=== PATIENT | female | born 1950 | race Caucasian/White ===

== ENCOUNTER → 2016-09-24 | Outpatient (CLI) | payer OTHER ==
[~2016-09-24] MED LIST: ASPI81TA28 PO; CALC500C70 PO; LSN/10125 PO; MULT-506 PO; SIMV10TA2 PO
[2016-09-24 13:02] LABS: ALT/SGPT 20 U/L (12-78); AST/SGOT 19 U/L (15-37); BLOOD UREA NITROGEN 12 mg/dl (7-18); BUN/CREATININE RATIO 18.6 (10-20); CALCIUM 9.4 mg/dl (8.5-10.1); CARBON DIOXIDE 29 mmol/L (21-32); CHLORIDE 104 mmol/L (98-107); CHOLESTEROL 212 mg/dl (0-200); CREATININE 0.64 mg/dl (0.60-1.20); GLUCOSE 93 mg/dl (70-99); POTASSIUM 3.9 mmol/L (3.5-5.1); SODIUM 138 mmol/L (136-145); TRIGLYCERIDES 121 mg/dl (0-150); VERY LOW DENSITY LIPOPROT CALC 24 mg/dl
[2016-09-24 13:05] LABS: CHOLESTEROL/HDL RATIO 3.7; HDL CHOLESTEROL 57 mg/dl; LDL CHOLESTEROL CALCULATED 131 mg/dl
== END | disposition home or self-care (01) ==
LOC: C.LABPVFM 07:28
PROVIDERS: ATTEND Family Medicine
DX: E78.5 Hyperlipidemia, unspecified (principal); I10 Essential (primary) hypertension

== ENCOUNTER → 2017-03-15 | Outpatient (CLI) | payer OTHER ==
--- NOTE | 2017-03-16 14:02 | MAMMOGRAPHY REPORT ---
BILATERAL DIGITAL SCREENING MAMMOGRAM TOMOSYNTHESIS WITH CAD: 03/15/2017 CLINICAL HISTORY: Routine screening. Patient has no complaints. TECHNIQUE: Breast tomosynthesis in addition to standard 2D mammography was performed. Current study was also evaluated with a Computer Aided Detection (CAD) system. COMPARISON: Comparison is made to exams dated: 05/05/2015 mammogram, 04/30/2014 mammogram, 04/25/2013 m ammogram, 03/29/2011 mammogram, 03/03/2010 mammogram, and 02/26/2009 mammogram - [facility] enter. BREAST COMPOSITION: There are scattered areas of fibroglandular density in both breasts. FINDINGS: The parenchymal pattern is unchanged. No developing mass, architectural distortion or clus ter of suspicious microcalcifications is seen in either breast. IMPRESSION: ACR BI-RADS CATEGORY 2: BENIGN There is no mammographic evidence of malignancy. A 1 year screening mammogram is recommended. The pa tient will receive written notification of the results. Approximately 10% of breast cancers are not detected with mammography. A negative mammographic report should not delay biopsy if a clinically suggestive mass is present. Rupa Dickerson M.D. ay/:03/15/2017 16:59:59 Organizational Development Consultant: Lain SPIVEY(Karen)(Titus)(BD), [facility] letter sent: Normal 1/2 BI-RADS Code: ACR BI-RADS Category 2: Benign
== END | disposition home or self-care (01) ==
LOC: C.MAMM 14:45
PROVIDERS: ATTEND Nurse Practitioner
DX: Z12.31 Encounter for screening mammogram for malignant neoplasm of breast (principal)

== ENCOUNTER → 2017-09-28 | Outpatient (CLI) | payer OTHER | END | disposition home or self-care (01) | LOC: C.LABPVFM 07:28 | PROVIDERS: ATTEND Family Medicine | DX: Z11.59 Encounter for screening for other viral diseases (principal) ==

== ENCOUNTER → 2017-09-29 | Outpatient (CLI) | payer OTHER ==
[2017-09-29 12:45] LABS: HEMATOCRIT 42.7 % (37-47); HEMOGLOBIN 13.9 g/dL (12.0-16.0); MEAN CELL VOLUME 92.8 fL (80-100); MEAN CORPUSCULAR HEMOGLOBIN 30.2 pg (25-34); MEAN CORPUSCULAR HGB CONC 32.6 g/dl (32-36); MEAN PLATELET VOLUME 9.8 fL (7.4-10.4); PLATELET COUNT 267 K/uL (130-400); RED CELL DISTRIBUTION WIDTH CV 13.4 % (11.5-14.5); WHITE BLOOD COUNT 8.38 K/uL (4.8-10.8)
[2017-09-29 15:54] LABS: ALBUMIN 3.7 gm/dl (3.4-5.0); ALKALINE PHOSPHATASE 70 U/L (45-117); ALT/SGPT 24 U/L (12-78); AST/SGOT 19 U/L (15-37); BLOOD UREA NITROGEN 14 mg/dl (7-18); CALCIUM 9.3 mg/dl (8.5-10.1); CARBON DIOXIDE 27 mmol/L (21-32); CHOLESTEROL 147 mg/dl (0-200); CREATININE 0.67 mg/dl (0.60-1.20); GLUCOSE 87 mg/dl (70-99); LDL CHOLESTEROL CALCULATED 43 mg/dl; POTASSIUM 3.8 mmol/L (3.5-5.1); SODIUM 138 mmol/L (136-145); TOTAL PROTEIN 7.7 gm/dl (6.4-8.2)
== END | disposition home or self-care (01) ==
LOC: C.LABPVFM 10:10
PROVIDERS: ATTEND Family Medicine
DX: E78.5 Hyperlipidemia, unspecified (principal); M85.80 Other specified disorders of bone density and structure, unspecified site

== ENCOUNTER 2022-01-13 07:04 | Observation (INO) ==
[2022-01-13] MEDS ORDERED: FAMOTIDINE 20MG IV PUSH 20 MG/5 ML SYR IV STA (07:18)
[2022-01-13] MEDS ORDERED: methylPREDNISolone 125 MG/2 ML VIAL IV STA (07:18)
[2022-01-13] MEDS ORDERED: diphenhydrAMINE 50 MG/ML VIAL IV STA (07:18)
--- NOTE | 2022-01-13 07:25 | Emergency Department Note ---
Impression & Plan Angioedema, Facial swelling ED Provider Note NAME: NAHUM MENDOZA AGE: 71 SEX: F : 1950 ARRIVES VIA: Walk-In INFORMANT: Patient ED PROVIDER(S): Arron Newton DO CHIEF COMPLAINT: swelling in lips HPI: Patient is a 71-year-old female who presents to the ER for swelling of the left face/lips. She notes this started around 3 AM. Denies any headache or change in vision. She notes no swelling of the tongue and back of the throat. No trouble breathing or swallowing. No belly pain, nausea, vomiting, diarrhea. Admits to a rash on the legs which started around 3 AM. It is itching. Denies any chest pain or shortness of breath. No dysuria, urgency, or frequency. No other exacerbating or remitting factors. ROS: See above HPI for pertinent positives & negatives. A total of 10 systems reviewed and were otherwise negative. PAST MEDICAL HISTORY:See Below PAST SURGICAL HISTORY:See Below FAMILY HISTORY:See Below SOCIAL HISTORY:See Below HOME MEDICATIONS:See Below ALLERGIES:See Below VITALS:See Below PHYSICAL EXAMINATION: GENERAL: Sitting up in bed, alert, well appearing, well nourished, no distress, non-toxic EYE EXAM: normal conjunctiva. PERRL and EOM's grossly intact. OROPHARYNX: no exudate, no erythema, swelling of the bilateral cheeks as well as watery edema of both upper and lower lips NECK: supple, no nuchal rigidity, no adenopathy, non-tender LUNGS: Clear to auscultation. Normal chest wall mechanics HEART: no murmurs, S1 normal and S2 normal ABDOMEN: abdomen soft, non-tender, normo-active bowel sounds, no masses, no rebound or guarding. UPPER EXTREMITIES: upper extremities are grossly normal. LOWER EXTREMITIES: No pitting edema. NEURO EXAM: Normal sensorium, cranial nerves II-XII grossly intact, normal speech, no gross weakness of arms, no gross weakness of legs. MEDICAL DECISION MAKING: Patient is a 71-year-old female who presents the ER for swelling in the lips. She does take lisinopril. She does have a small rash on the legs and in the back. IV was established blood work was obtained. Labs show leukocytosis of 11,000. No significant anemia. BMP with LFTs bilirubin was unremarkable. COVID is negative. On exam patient is watery edema of the upper and lower lips. While sitting here she noticed some increased swelling of the cheeks. With the rash we had already giving her Benadryl, famotidine and steroids to the IV and we gave her IM epinephrine. There is no change. Did have the patient evaluated by our hospitalist staff Conti as well as Dr. Randall Portillo for admission. I did consult Alex Christine from anesthesia who evaluate the patient at bedside. No intubation at this time as she is protecting her airway and talking. She will be admitted for further work-up. She was updated. Triage Nursing notes reviewed. Limited review of prior medical records performed Vital Signs: reviewed and remarkable for HTN Differential diagnosis: Allergic reaction, anaphylaxis, urticaria, Kaur-Medhat syndrome, toxic epidermal necrolysis, erythema multiforme, contact dermatitis, cellulitis, as well as other pathologies. ER treatment provided: See below Diagnostics interpreted by me: ECG: none Cardiac Monitoring: An order was placed for continuous cardiac monitoring. The monitor shows a rate of 90 with sinus rhythm. Laboratory studies: As stated above and show below. Imaging studies: See below Consultation(s): Discussed with Dr. Medhat Conti for admission to the hospital service Discussed with Dr. 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 Hyperlipidemia Hypertension Internal hemorrhoids Osteoarthritis Osteopenia Vertigo Surgical History History of bilateral carpal tunnel release History of bilateral tubal ligation done during 2nd History of open reduction and internal fixation (ORIF) procedure right ankle--hardware in place History of wisdom tooth extraction Hx of section x2 Hx of tonsillectomy Family History Mother Colon cancer Diabetes Lung cancer Hypertension Brother Colon cancer Lung cancer Father Diabetes Cardiac disorder Hypertension Sister Diabetes Hypertension Unknown Myocardial infarction Other No family history of adverse response to anesthesia Denies family history of Ovarian cancer Prostate cancer Breast cancer Social History Smoking Status: Never smoker Second Hand Exposure: No; Hx Alcohol Use: Yes Hx Substance Use: No Preferred Language: Persian Communication Ability: Effective Industrial Insulator Required: No Beliefs That Will Affect Care: None marital status: Current Living Situation: Spouse current occupational status: retired Feels Safe at Home: Yes Safety Concerns: Feels Safe At This Time caffeine: Yes Dental Care, Regularly: Yes Physical Activity Frequency: 3-4 Times per Week Seatbelt Use: always Sunscreen Use: Yes Assistive Devices: Glasses Allergies Allergies Allergy/AdvReac Type Severity Reaction Status Date / Time pepper (genus Capsicum) Allergy Severe lips/face Verified 12/25/21 08:14 swelling Sulfa (Sulfonamide Allergy Intermediate HIVES Verified 12/25/21 08:14 Antibiotics) Home Meds Home Medications Medication Instructions Recorded Confirmed aspirin 81 mg tablet 81 mg PO QAM 10/10/18 12/25/21 calcium carbonate 500 mg-vitamin 1 tab PO QPM 10/10/18 12/25/21 D3 5 mcg (200 unit) tablet [id number]-fhmclozn-[id number] tablet 1 tab PO QAM 10/10/18 12/25/21 acetaminophen 650 mg 1,300 mg PO BID 03/12/21 12/25/21 tablet,extended release Previous Rx's Medication Instructions Recorded meclizine 25 mg tablet 25 mg PO TID PRN dizziness #30 tabs 01/09/19 simvastatin 10 mg tablet 10 mg PO QPM #90 tabs 10/02/21 alendronate 70 mg tablet 70 mg PO WK #12 tabs 11/10/21 lisinopril 10 1.5 tab PO QAM #135 tabs 11/24/21 mg-hydrochlorothiazide 12.5 mg tablet Results & Data (ED) Vital Signs Vital Signs - 24 hr 01/13/22 07:08 01/13/22 07:36 01/13/22 07:36 Temperature 37.2 C Temperature Source Oral Pulse Rate 93 H 78 Pulse Rate from SpO2 Sensor Pulse Rhythm Regular Respiratory Rate 18 22 Blood Pressure 172/101 H Blood Pressure [Left Arm] Blood Pressure Mean 124 Blood Pressure Mean [Left Arm] Blood Pressure Position [Left Arm] Pulse Oximetry 94 78 L 95 Oxygen Delivery Method Room Air Room Air Room Air Sepsis Recent Fever Within 48 Hours No Sepsis New/Unexplained Change in Mental Status No Sepsis Action Taken by Nursing No Action Required 01/13/22 07:37 01/13/22 07:37 01/13/22 07:45 Temperature Temperature Source Pulse Rate 88 76 Pulse Rate from SpO2 Sensor Pulse Rhythm Respiratory Rate 19 20 Blood Pressure Blood Pressure [Left Arm] 168/82 H Blood Pressure Mean Blood Pressure Mean [Left Arm] 110 Blood Pressure Position [Left Arm] Sitting Pulse Oximetry 95 94 Oxygen Delivery Method Room Air Room Air Sepsis Recent Fever Within 48 Hours Sepsis New/Unexplained Change in Mental Status Sepsis Action Taken by Nursing 01/13/22 08:00 01/13/22 08:15 01/13/22 08:30 Temperature Temperature Source Pulse Rate 87 67 Pulse Rate from SpO2 Sensor Pulse Rhythm Respiratory Rate 18 18 Blood Pressure 134/67 Blood Pressure [Left Arm] Blood Pressure Mean 89 Blood Pressure Mean [Left Arm] Blood Pressure Position [Left Arm] Pulse Oximetry 96 94 Oxygen Delivery Method Room Air Room Air Sepsis Recent Fever Within 48 Hours Sepsis New/Unexplained Change in Mental Status Sepsis Action Taken by Nursing 01/13/22 08:30 01/13/22 08:45 01/13/22 09:00 Temperature Temperature Source Pulse Rate 67 70 Pulse Rate from SpO2 Sensor 67 Pulse Rhythm Respiratory Rate 14 13 Blood Pressure 151/73 H Blood Pressure [Left Arm] Blood Pressure Mean 99 Blood Pressure Mean [Left Arm] Blood Pressure Position [Left Arm] Pulse Oximetry 93 94 Oxygen Delivery Method Room Air Room Air Sepsis Recent Fever Within 48 Hours Sepsis New/Unexplained Change in Mental Status Sepsis Action Taken by Nursing 01/13/22 09:00 Temperature Temperature Source Pulse Rate 83 Pulse Rate from SpO2 Sensor Pulse Rhythm Respiratory Rate 17 Blood Pressure Blood Pressure [Left Arm] Blood Pressure Mean Blood Pressure Mean [Left Arm] Blood Pressure Position [Left Arm] Pulse Oximetry 95 Oxygen Delivery Method Room Air Sepsis Recent Fever Within 48 Hours Sepsis New/Unexplained Change in Mental Status Sepsis Action Taken by Nursing Laboratory Data Result diagrams: 01/13/22 07:22 01/13/22 07:22 Lab Results 01/13/22 01/13/22 Range/Units 07: 07:22 WBC 11.47 H (4.8-10.8) K/ul RBC 4.65 (3.93-5.22) M/uL Hgb 14.5 (12.0-16.0) g/dl Hct 43.2 (34.1-44.9) % MCV 92.9 (80.0-100.0) fL MCH 31.2 (25.0-34.0) pg MCHC 33.6 (32.0-36.0) g/dL RDW Std Deviation 42.9 (36.4-46.3) fL RDW Coeff of Rolanda 12.5 (11.5-14.5) % Plt Count 251 (130-400) K/uL MPV 8.9 L (9.4-12.3) fL Immature Gran % (Auto) 0.5 % Neut % (Auto) 69.5 % Lymph % (Auto) 21.4 % [place] % (Auto) 6.4 % Eos % (Auto) 1.9 % Baso % (Auto) 0.3 % Neut # (Auto) 7.96 H (1.4-6.5) K/uL Lymph # (Auto) 2.46 (1.2-3.4) K/uL [place] # (Auto) 0.73 (0.24-0.82) K/uL Eos # (Auto) 0.22 (0-0.50) K/uL Baso # (Auto) 0.04 (0-0.2) K/uL Immature Gran # (Auto) 0.06 H (0.00-0.02) K/uL Sodium 138 (136-145) mmol/L Potassium 4.0 (3.5-5.1) mmol/L Chloride 103 (98-107) mmol/L Carbon Dioxide 28 (21-32) mmol/L Anion Gap 7 (3-11) BUN 11 (6-23) mg/dl Creatinine 0.58 L (0.6-1.2) mg/dl Est Cr Clr Drug Dosing 89.9 ml/min Est GFR ( Amer) 106.7 ml/min Est GFR (Non-Af Amer) 92.1 ml/min BUN/Creatinine Ratio 19.0 (10-20) Glucose 105 H (70-99(Fasting)) mg/dl Calcium 9.7 (8.5-10.1) mg/dl Total Bilirubin 0.9 (0.2-1.0) mg/dl AST 17 (13-39) U/L ALT 15 (7-52) U/L Alkaline Phosphatase 56 (34-104) U/L Total Protein 7.5 (6.0-8.3) gm/dl Albumin 4.2 (3.4-5.0) gm/dl Globulin 3.3 (2.5-4.0) gm/dl Albumin/Globulin Ratio 1.3 (0.9-2) Administered Medications Parenteral Electrolytes (Normosol-R) 1,000 mls @ 75 mls/hr IV .[id number] LENNOX Stop: 02/12/22 10:44 Last Admin: 01/13/22 12:00 Dose: 75 mls/hr Documented By: CB Discontinued Medications Diphenhydramine HCl (Diphenhydramine 50 Mg/Ml Vial) 50 mg IV NOW STA Stop: 01/13/22 07:19 Last Admin: 01/13/22 07:29 Dose: 50 mg Documented By: KARRIE Epinephrine HCl (Epinephrine Inj 1 Mg/Ml Amp) 0.3 mg IM NOW STA Stop: 01/13/22 08:47 Last Admin: 01/13/22 08:49 Dose: 0.3 mg Documented By: KARRIE Epinephrine HCl (Epinephrine Inj 1 Mg/Ml Amp) Confirm Administered Dose 1 mg .ROUTE .STK-MED ONE Stop: 01/13/22 08:48 Last Admin: 01/13/22 08:49 Dose: Not Given Documented By: KARRIE Famotidine (Pepcid 20mg Iv Push) 20 mg in 5 mls @ 2.5 mls/min IV NOW STA Stop: 01/13/22 07:19 Last Admin: 01/13/22 07:28 Dose: 2.5 mls/min Documented By: KARRIE Methylprednisolone (Methylprednisolone 125 Mg/2 Ml Vial) 125 mg IV NOW STA Stop: 01/13/22 07:19 Last Admin: 01/13/22 07:30 Dose: 125 mg Documented By: KARRIE Discharge Plan Visit Data Chief Complaint: Allergic Reaction Stated Complaint: FACIAL SWELLING - LIPS,CHEEKS ED Provider: Arron Newton Discharge Problem: Angioedema, Facial swelling Patient Disposition: Admitted As Inpatient Discharge Instructions Interventions: ED Discharge Assessment Last Done: 01/13/22 10:40
[2022-01-13 07:32] LABS: Basophils # (auto) 0.04 K/uL (0-0.2); Basophils % (auto) 0.3 %; Eosinophils # (auto) 0.22 K/uL (0-0.50); Eosinophils % (auto) 1.9 %; Hematocrit (blood only) 43.2 % (34.1-44.9); Hemoglobin 14.5 g/dl (12.0-16.0); Immature Granulocytes # (auto) 0.06 K/uL (0.00-0.02); Immature Granulocytes % (auto) 0.5 %; Lymphocytes # (auto) 2.46 K/uL (1.2-3.4); Lymphocytes % (auto) 21.4 %; Mean Corpuscular Hemoglobin 31.2 pg (25.0-34.0); Mean Corpuscular Hgb Conc 33.6 g/dL (32.0-36.0); Mean Corpuscular Volume 92.9 fL (80.0-100.0); Mean Platelet Volume 8.9 fL (9.4-12.3); Monocytes # (auto) 0.73 K/uL (0.24-0.82); Monocytes % (auto) 6.4 %; Neutrophils # (auto) 7.96 K/uL (1.4-6.5); Neutrophils % (auto) 69.5 %; Platelet Count 251 K/uL (130-400); RDW Coefficient of Variation 12.5 % (11.5-14.5); RDW Standard Deviation 42.9 fL (36.4-46.3); Red Blood Count 4.65 M/uL (3.93-5.22); White Blood Count 11.47 K/ul (4.8-10.8)
[2022-01-13 07:53] LABS: Albumin Globulin Ratio 1.3 (0.9-2); Albumin Level 4.2 gm/dl (3.4-5.0); Bilirubin,Total 0.9 mg/dl (0.2-1.0); Calcium 9.7 mg/dl (8.5-10.1); Creatinine Clr Calc Pharmacy 89.9 ml/min; Est GFR (African American) 106.7 ml/min; Est GFR (Non-African American) 92.1 ml/min; Globulin 3.3 gm/dl (2.5-4.0); Total Protein 7.5 gm/dl (6.0-8.3)
[2022-01-13] MEDS ORDERED: EPINEPHrine INJ 1 MG/ML AMP IM STA (08:46)
[2022-01-13] MEDS ORDERED: EPINEPHrine INJ 1 MG/ML AMP ONE (08:47)
[2022-01-13] MEDS ORDERED: ACETAMINOPHEN 325 MG TAB PO PRN (09:10)
[2022-01-13] MEDS ORDERED: ONDANSETRON INJ 2 MG/ML 2 ML VIAL IV PRN (09:10)
[2022-01-13] MEDS ORDERED: MECLIZINE HCL 25 MG TAB PO PRN (09:15)
[2022-01-13] MEDS ORDERED: diphenhydrAMINE 50 MG/ML VIAL IV PRN (09:16)
--- NOTE | 2022-01-13 09:26 | History & Physical Report ---
Date of Service January 13, 2022 Assessment & Plan (1) Angioedema: Plan: 71-year-old female presenting with moderate facial and lip swelling concerning for angioedema requiring close airway monitoring and ongoing anaphylactic medication administration over the next several hours. -Patient's exam consistent with acute angioedema. While the patient does have a history of similar symptoms relating to a pepper allergy, though symptoms typically occur fairly abruptly after the ingestion and this was certainly not the case. Patient has a longstanding history of lisinopril use. Currently, symptoms are suspicious of angio edema from likely lisinopril use. Will wi thhold lisinopril to this point. Interestingly, the patient has had some hives as well. She received aggressive doses of steroids, antihistamines, and one- time dose of epinephrine in the emergency department. She will be evaluated by anesthesia for airway management. Patient to be admitted to monitored telemetry floor. We will keep airway equipment outside the room in the immediate future in the event that the patient's symptoms were to decline. Otherwise, we will continue with scheduled Solu-Medrol and famotidine. Will have as needed Benadryl IV ordered. Epinephrine ordered as well for refractory symptoms. Continue other home medications for hyperlipidemia and pain. Otherwise, will likely need to address patient's hypertension with change in medication, however we will see how the patient's blood pressure trends throughout current stay. (2) Facial swelling: Plan: See above (3) Difficult airway for intubation: Plan: See above (4) Hypertension: Plan: Hold lisinopril at this time as this is likely culprit of patient's angioedema. (5) Hyperlipidemia: Plan: Continue simvastatin. (6) Dizziness: Plan: Continue meclizine as needed. History of Present Illness Chief Complaint: Swelling in Lips Primary Care Provider: Gemma Artis MD Patient is a pleasant 71-year-old female with a significant past medical history of hypertension, hyperlipidemia, osteoporosis, and dizziness who presented to the emergency department this morning for evaluation of lips and facial swelling. Patient states that other than having symptoms of an upper respiratory infection for the past week, she has been at her typical state of health. She reports that 1 week ago she developed a sore throat which progr essed to ongoing cough. She states that the sore throat has resolved, but she has had a persistent cough. She has been taking ctdr-wzj-bhsqwta NyQuil and DayQuil as needed. She reports that there is been no new medications otherwise. She woke at approximately 3 AM and noticed that she had a rash to her bilateral legs. She also noted swelling to her face and lips. She states that she has had similar swelling of the face and lips in the past with a reaction to peppers, but reports that other than a few bites of some pizza that did not appear to have peppers on it, she had no known exposures. She reports that her allergy to peppers typically declares itself within the first several minutes to hours after ingestion and this certainly was not the case. She denies any difficulty with breathing or swallowing. She does report a history of lisinopril use which she has been on for "many years". She denies any family history of angioedema. The patient reports no new detergents, colognes, perfumes, foods, etc. Other than some soreness and burning to the face and lips, she denies any complaints of headaches, dizziness, lightheadedness, shortness of breath, stridor, chest pain, difficulty breathing, difficulty swallowing, nausea, vomiting, or abdominal discomfort. Allergies Allergy/AdvReac Type Severity Reaction Status Date / Time pepper (genus Capsicum) Allergy Severe lips/face Verified 12/25/21 08:14 swelling Sulfa (Sulfonamide Allergy Intermediate HIVES Verified 12/25/21 08:14 Antibiotics) Home Medications Medication Instructions Recorded Confirmed Type aspirin 81 mg tablet 81 mg PO QAM 10/10/18 12/25/21 History calcium carbonate 500 mg-vitamin 1 tab PO QPM 10/10/18 12/25/21 History D3 5 mcg (200 unit) tablet drtikjovxalx-lacufjiy-jxtvmt tablet 1 tab PO QAM 10/10/18 12/25/21 History meclizine 25 mg tablet 25 mg PO TID PRN dizziness #30 tabs 01/09/19 12/25/21 Rx acetaminophen 650 mg 1,300 mg PO BID 03/12/21 12/25/21 History tablet,extended release simvastatin 10 mg tablet 10 mg PO QPM #90 tabs 10/02/21 12/25/21 Rx alendronate 70 mg tablet 70 mg PO WK #12 tabs 11/10/21 12/25/21 Rx lisinopril 10 1.5 tab PO QAM #135 tabs 11/24/21 12/25/21 Rx mg-hydrochlorothiazide 12.5 mg tablet Past Med/Surg History Medical History Diverticulosis of colon Hearing loss in left ear Hyperlipidemia Hypertension Internal hemorrhoids Osteoarthritis Osteopenia Vertigo Surgical History History of bilateral carpal tunnel release History of bilateral tubal ligation done during 2nd History of open reduction and internal fixation (ORIF) procedure right ankle--hardware in place History of wisdom tooth extraction Hx of section x2 Hx of tonsillectomy Family History Mother Colon cancer Diabetes Lung cancer Hypertension Brother Colon cancer Lung cancer Father Diabetes Cardiac disorder Hypertension Sister Diabetes Hypertension Unknown Myocardial infarction Other No family history of adverse response to anesthesia Denies family history of Ovarian cancer Prostate cancer Breast cancer Social History Smoking Status: Never smoker Second Hand Exposure: No; Hx Alcohol Use: Yes Hx Substance Use: No Preferred Language: Turkmen Communication Ability: Effective Math Teacher Required: No Beliefs That Will Affect Care: None marital status: Current Living Situation: Spouse current occupational status: retired Feels Safe at Home: Yes Safety Concerns: Feels Safe At This Time caffeine: Yes Dental Care, Regularly: Yes Physical Activity Frequency: 3-4 Times per Week Seatbelt Use: always Sunscreen Use: Yes Assistive Devices: Glasses Review of Systems Review of Systems: A complete 10 point review of systems was reviewed with the patient with pertinent positives and negatives as per history of present illness. All else were negative. Physical Exam Physical Exam: VITAL SIGNS - Vital signs and nursing notes were reviewed. GENERAL - 71-year-old female appearing her stated age. Communicates well with provider and answers questions appropriately. SKIN - Gross examination of the entire body surface demonstrates multiple small urticaria to the legs and lower back. Lesions are blanchable. There are no noticeable excoriations overlying the lesions. Patient has no noticeable active pruritis. HEAD - Normocephalic, Atraumatic. EYES - PERRL with EOMI bilaterally. Without periorbital edema. Without subconjunctival hemorrhage. Palpebral conjunctiva pink and moist with no injection. EARS - No deformities of external structures noted on gross examination bilaterally. No hemotympanum present. NOSE - Midline and without cyanosis. No epistaxis or clear watery discharge noted. Septum midline without deviation. No overlying ecchymosis noted. MOUTH/OROPHARYNX - Without perioral cyanosis. Moderate angioedema including the lips and tongue. Does not appear to be any submental component. No trismus. Tongue midline with equal elevation of palate bilaterally. Good view of the posterior oropharynx. No tongue swelling. No tonsillar hypertrophy, erythema, or exudates noted. Good dentition noted. NECK - Supple to palpation. No JVD noted. LUNGS - Chest wall symmetric without accessory muscle use, intercostals retractions, or central cyanosis. Without stridor. No active wheezes. Normal vesicular breath sounds CTA B/L. No rales or rhonchi appreciated. CARDIAC - RRR with S1/S2. No murmur, rubs, or gallops appreciated. ABDOMEN - Abdominal contour flat without pulsations or visible masses. BS normoactive all four quadrants. No rebound tenderness or guarding noted. No tenderness, palpable masses, hepatosplenomegaly, or ascites noted. EXTREMITIES - No gross deformities noted of the extremities. +3/5 radial and dorsalis pedis pulses palpated throughout. +5/5 strength noted in UE/LE bilaterally. NEUROLOGIC - Cranial nerves II through XII grossly intact. Sensory intact to light touch throughout. PSYCH - A&Ox3 and cooperates fully with examiner. Pt is very pleasant and interacts well with examiner. Results & Data Results & Data ([facility]) Vital Signs (Past 12 Hours) Vital Signs Temp Pulse Resp BP BP Pulse Ox O2 Del Method 01/13/22 07:37 168/82 H 01/13/22 07:36 78 22 95 Room Air 01/13/22 07:36 78 L Room Air 01/13/22 07:08 37.2 C 93 H 18 172/101 H 94 Room Air Laboratory Results Labs 01/13/22 01/13/22 01/13/22 07:22 07:22 11:00 WBC 11.47 H RBC 4.65 Hgb 14.5 Hct 43.2 MCV 92.9 MCH 31.2 MCHC 33.6 RDW Std Deviation 42.9 RDW Coeff of Rolanda 12.5 Plt Count 251 MPV 8.9 L Immature Gran % (Auto) 0.5 Neut % (Auto) 69.5 Lymph % (Auto) 21.4 [place] % (Auto) 6.4 Eos % (Auto) 1.9 Baso % (Auto) 0.3 Neut # (Auto) 7.96 H Lymph # (Auto) 2.46 [place] # (Auto) 0.73 Eos # (Auto) 0.22 Baso # (Auto) 0.04 Immature Gran # (Auto) 0.06 H Sodium 138 Potassium 4.0 Chloride 103 Carbon Dioxide 28 Anion Gap 7 BUN 11 Creatinine 0.58 L Est Cr Clr Drug Dosing 89.9 Est GFR ( Amer) 106.7 Est GFR (Non-Af Amer) 92.1 BUN/Creatinine Ratio 19.0 Glucose 105 H POC Glucose Calcium 9.7 Total Bilirubin 0.9 AST 17 ALT 15 Alkaline Phosphatase 56 Total Protein 7.5 Albumin 4.2 Globulin 3.3 Albumin/Globulin Ratio 1.3 Nasal Screen MRSA (PCR) Negative SARS-CoV-2, RNA, NAAT 01/13/22 01/13/22 12:25 Unknown WBC RBC Hgb Hct MCV MCH MCHC RDW Std Deviation RDW Coeff of Rolanda Plt Count MPV Immature Gran % (Auto) Neut % (Auto) Lymph % (Auto) [place] % (Auto) Eos % (Auto) Baso % (Auto) Neut # (Auto) Lymph # (Auto) [place] # (Auto) Eos # (Auto) Baso # (Auto) Immature Gran # (Auto) Sodium Potassium Chloride Carbon Dioxide Anion Gap BUN Creatinine Est Cr Clr Drug Dosing Est GFR ( Amer) Est GFR (Non-Af Amer) BUN/Creatinine Ratio Glucose POC Glucose 148 H Calcium Total Bilirubin AST ALT Alkaline Phosphatase Total Protein Albumin Globulin Albumin/Globulin Ratio Nasal Screen MRSA (PCR) SARS-CoV-2, RNA, NAAT NEGATIVE Code Status & VTE Plan VTE Prophylaxis Plan VTE Prophylaxis will be ordered: Yes Supervising Physician Co-Signing Physician Notes Attending Attestation and Admission Note: Pt seen/examined, chart reviewed, care plan d/w ANGELO Conti. I agree w/ the connolly components of his documentation. 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 Symptoms began at 0300 this am. No tongue swelling. No wheezing during the episode. She reports a viral URI x 1 week prior to this am's event. In the ER today received IV steroids/benadryl/H2 amanda with improved symptoms/signs. I saw the patient following admission and by the time of my bedside assessment her facial swelling and urticaria were MUCH improved. PMH/PSH/allergies/meds/sochx/famhx - reviewed VSS, afebrile gen - NAD, no stridor or resp distress face - mild right-sided facial swelling only mouth/throat - no tongue swelling, no trismus, no pharyngeal swelling neck - no JVD heart - RRR, s1 s2 lungs - CTA b/l abd - soft NT ND BS+ ext - no edema skin - near-resolved erythematous rash on back and upper legs labs reviewed ER course reviewed A/P: 1. allergic rxn/angioedema/urticaria - 2nd to food allergy? 2nd to CASEY inhibitor? viral induced? regardless of etiology symptoms/signs improving s/p steroids, antihistamines, etc. no airway compromise at this time hold CASEY send to allergy post-d/c for further testing 2. URI - COVID neg; check cxr, r/o pneumonia; supportive care 3. HTN - may need substitute for her CASEY; trend BPs Vince Sanderson MD PG Care Time/CCT Total # of Minutes Spent Total Time Spent with Patient: Total time spent is greater than 50% in coordination of care (as documented) at patient's floor/unit and/or counseling patient: Coding Level of Care Code 06793 Initial Inpt Care Lvl 2 Diagnoses Angioedema T78.3XXA Facial swelling R22.0 Difficult airway for intubation T88.4XXA Hypertension I10 Hyperlipidemia E78.5 Dizziness R42 Time Spent (min) 45
--- NOTE | 2022-01-13 09:30 | Communication Note ---
Date of Service: January 13, 2022 I was called by ER physician to evaluate the patient for possible emergency intubation. The patient is a 71 y/o female with PMH of HTN, dyslipidemia, ve rtigo, and arthritis who presented with swelling of her lips and cheeks. This swelling began at 0300 today. The patient has been on lisinopril for fifteen years and has had episodes of facial swelling in the past related to eating peppers. She did eat pepperoni pizza last night. She has no other obvious exposures that would cause the swelling. The patient has been given diphenhydramine, epinephrine, famotidine, and methylprednisolone in the ER. She has noted some reduction in the swelling of her left face. On exam the patient is resting comfortably in bed. Her vital signs are stable w ith SpO2 of 95 on room air. The patient's lips and cheeks do appear swollen. She has a MP 2 airway and her tongue does not appear swollen. She is not slurring her speech. She has good neck extension. TMD is greater than 3 finger breaths. Her lungs are clear to auscultation. The patent has angioedema of unknown cause. She does not need to be intubated at this time. However, I did on awake counselor the patient to let a nurse know immediately if her swelling worsens or she develops any trouble with her breathing. I recommend to the patient to hold off on taking her lisinopril until it can be ruled out as a cause of the angioedema. I spoke with Dr. Newton about the patient. The hospitalist team has seen the patient and will follow the patient in the hospital.
[2022-01-13] MEDS ORDERED: EPINEPHrine INJ 1 MG/ML AMP IM PRN (10:53)
[2022-01-13] MEDS: NORMOSOL-R 1,000 ML IV SCH (12:00)
[2022-01-13] MEDS: methylPREDNISolone 40 MG in SYRINGE 0 ML IV SCH ×2 (15:16→22:44)
[2022-01-13] MEDS: FAMOTIDINE 20 MG in SYRINGE 3 ML IV SCH (20:02)
--- NOTE | 2022-01-13 20:30 | XRay Report ---
XR chest 2V PA/lateral CLINICAL HISTORY: recent respiratory illness, ongoing cough TECHNIQUE: 2 views of the chest were obtained. Comparison: None available at the time of this dictation. FINDINGS: No lines and tubes are seen. Calcified aortic knob is seen. The lungs are clear. There is blunting of the costophrenic angle in the bilateral lungs. IMPRESSION: No acute abnormalities and in particular no evidence of pneumonia. Blunting of the bilateral costophr enic angles may represent scarring versus trace effusions. ACT 112: Negative or not required by law. Electronically signed by: Fausto Becker M.D. 01/13/2022 8:28 PM
[2022-01-13] MEDS ORDERED: COUGH DROP (SUGAR FREE) LOZ 24 LOZ/1 BOX BUCCAL STA (20:49)
[2022-01-13] MEDS ORDERED: SIMVASTATIN 10 MG TAB PO SCH (21:00)
[2022-01-14] MEDS: NORMOSOL-R 1,000 ML IV SCH (00:05)
[2022-01-14] MEDS: methylPREDNISolone 40 MG in SYRINGE 0 ML IV SCH ×2 (06:03→12:58)
[2022-01-14 06:58] LABS: BUN Creatinine Ratio 21.6 (10-20); Calcium 8.9 mg/dl (8.5-10.1); Creatinine Clr Calc Pharmacy 101.7 ml/min; Est GFR (African American) 111.3 ml/min; Est GFR (Non-African American) 96.1 ml/min; Potassium 3.3 mmol/L (3.5-5.1)
[2022-01-14] MEDS: FAMOTIDINE 20 MG in SYRINGE 3 ML IV SCH (08:17)
[2022-01-14] MEDS ORDERED: POTASSIUM CHLORIDE CRTAB 20 MEQ TABCR PO STA (08:43)
[2022-01-14] MEDS ORDERED: ASPIRIN 81 MG ECTAB PO SCH (09:00)
--- NOTE | 2022-01-14 12:34 | Discharge Summary ---
Date of Service January 14, 2022 Admission HPI Per Admitting Provider Patient is a pleasant 71-year-old female with a significant past medical history of hypertension, hyperlipidemia, osteoporosis, and dizziness who presented to the emergency department this morning for evaluation of lips and facial swelling. Patient states that other than having symptoms of an upper respiratory infection for the past week, she has been at her typical state of health. She reports that 1 week ago she developed a sore throat which progressed to ongoing cough. She states that the sore throat has resolved, but she has had a persistent cough. She has been taking lust-tes-zdnmwqg NyQuil and DayQuil as needed. She reports that there is been no new medications otherwise. She woke at approximately 3 AM and noticed that she had a rash to her bilateral legs. She also noted swelling to her face and lips. She states that she has had similar swelling of the face and lips in the past with a reaction to peppers, but reports that other than a few bites of some pizza that did not appear to have peppers on it, she had no known exposures. She reports that her allergy to peppers typically declares itself within the first several minutes to hours after ingestion and this certainly was not the case. She denies any difficulty with breathing or swallowing. She does report a history of lisinopril use which she has been on for "many years". She denies any family history of angioedema. The patient reports no new detergents, colognes, perfumes, foods, etc. Other than some soreness and burning to the face and lips, she denies any complaints of headaches, dizziness, lightheadedness, shortness of breath, stridor, chest pain, difficulty breathing, difficulty swallowing, nausea, vomiting, or abdominal discomfort. Discharge Data Allergies Allergy/AdvReac Type Severity Reaction Status Date / Time pepper (genus Capsicum) Allergy Severe lips/face Verified 12/25/21 08:14 swelling Sulfa (Sulfonamide Allergy Intermediate HIVES Verified 12/25/21 08:14 Antibiotics) Consultations 01/13/22 08:47 ED Decision to Admit Stat Hospital Course (1) Angioedema: 71-year-old female presenting with moderate facial and lip swelling concerning for angioedema requiring close airway monitoring and ongoing anaphylactic medication administration over the next several hours. -Patient's exam consistent with acute angioedema. While the patient does have a history of similar symptoms relating to a pepper allergy, though symptoms typically occur fairly abruptly after the ingestion and this was certainly not the case. Patient has a longstanding history of lisinopril use. Currently, symptoms are suspicious of angio edema from likely lisinopril use. Will withhold lisinopril to this point. Interestingly, the patient has had some hives as well. She received aggressive doses of steroids, antihistamines, and one-time dose of epinephrine in the emergency department. She will be evaluated by anesthesia for airway management. Patient to be admitted to monitored telemetry floor. We will keep airway equipment outside the room in the immediate future in the event that the patient's symptoms were to decline. Otherwise, we will continue with scheduled Solu-Medrol and famotidine. Will have as needed Benadryl IV ordered. Epinephrine ordered as well for refractory symptoms. Continue other home medications for hyperlipidemia and pain. Otherwise, will likely need to address patient's hypertension with change in medication, however we will see how the patient's blood pressure trends throughout current stay. (2) Facial swelling: See above (3) Difficult airway for intubation: See above (4) Hypertension: Hold lisinopril at this time as this is likely culprit of patient's angioedema. (5) Hyperlipidemia: Continue simvastatin. (6) Dizziness: Continue meclizine as needed. Discharge Plan Discharge Items Patient Disposition: Home - Self-Care Reason For Visit: ANGIOEDEMA Discharge Diagnosis: Angioedema / allergic reaction - improved Recent upper respiratory infection with normal chest x-ray (no pneumonia seen) Activity: Resume your previous activity Activity Comment: as tolerated Driving/Machine Use: Resume 1 day after discharge Non-emergency contact: Primary Care Provider and Specialist Call non-emergency contact if: you have any medication questions, your symptoms worsen and you have a fever Follow-up/Referrals: Gemma Artis MD [Primary Care Provider] - (please see Dr Artis early this coming week ) Shabbir Maldonado MD [Physician] - (first available - angioedema/allergic rxn; medication? food allergy? ) Diet: Regular Addtl Attending Provider Instructions: Mrs Parker, You were hospitalized after suffering an allergic reaction. Upon arrival to [facility] you had severe facial swelling along with hives of your back and legs. You responded quickly to epi pen, steroids, benadryl, and other medications. It was unclear if this reaction/angioedema was due to a medication, a food, etc. Recommendations - 1. please STOP your lisinopril-hydrochlorothiazide combination blood pressure medication. 2. change to hydrochlorothiazide by itself. Take 12.5mg once daily of hydrochlorothiazide (HCTZ). You can start this tomorrow morning. 3. since the lisinopril is gone you will have to take a potassium supplement with your hydrochlorothiazide. Take the potassium once daily. 4. an epi-pen auto-injector has been prescribed to you in the event of a severe allergic reaction/anaphylaxis. Keep this with you when you leave your home. Inject into the muscle of your upper arm or thigh/leg if you are having an allergic reaction with any of the following symptoms - * shortness of breath/difficulty breathing * wheezing * severe facial/throat/neck swelling * feeling faint / feeling as if you could pass out always best to err on the side of caution and have a low threshold for using the injection. 5. for your recent allergic reaction take - * vxop-ufo-bdtnoyg pepcid 20mg twice daily x 5 days, first dose tonight * akev-rbs-pdebwlu benadryl 25mg every 6 hours x 3 doses, then use every 6 hours as needed thereafter for itching, rash/hives, etc * dexamethasone steroid taper - begin this on Tuesday morning, 01/15/22; take the steroid with food. It is a 5-day taper. Follow directions on bottle 6. for your respiratory infection ok to take adxh-lku-fnzimei mucinex up to 1200mg twice daily as needed for cough/congestion. Follow-up - see separate section Return to [facility] if - * you develop fever over 100 degrees * you have worsening shortness of breath * you have chest pain or tightness * your rash/hives worsen despite taking the above medications * you ever have to use the epi-pen for a severe reaction * any other concerns It was our pleasure to care for you at [facility]! -Dr Sanderson Pending Studies at Discharge: No Stand-Alone Forms: My [facility], Smoking Cessation Medications and DC Order Prescriptions: New hydrochlorothiazide 12.5 mg tablet 12.5 mg PO QAM Qty: 30 1RF potassium chloride 10 mEq tablet extended release 10 meq PO DAILY Qty: 30 1RF dexamethasone 2 mg tablet 2 mg PO DAILY Qty: 9 0RF Rx Instructions: start 01/15: 3 tabs day 1, 2 tabs days 2/3, 1 tab days 4/5. Take with food. famotidine [Pepcid] 20 mg tablet 20 mg PO BID 5 Days Qty: 10 0RF Rx Instructions: purchase tnwf-rkz-oonqmnz epinephrine 0.3 mg/0.3 mL auto-injector 0.3 mg IM ONCE PRN (Reason: anaphylaxis/severe allergic reaction) Qty: 2 0RF Continued simvastatin 10 mg tablet 10 mg PO QPM Qty: 90 1RF alendronate 70 mg tablet 70 mg PO WK Qty: 12 0RF Label Comments: takes on tuesday Rx Instructions: TAKE 1 TABLET WEEKLY aspirin 81 mg tablet 81 mg PO QAM calcium carbonate-vitamin D3 500 mg(1,250mg) -200 unit tablet 1 tab PO QPM erbjmkwcbzrb-fcpwxzkl-fswvte tablet 1 tab PO QAM meclizine 25 mg tablet 25 mg PO TID PRN (Reason: dizziness) Qty: 30 0RF acetaminophen 650 mg Tablet Extended Release 1,300 mg PO BID Discontinued lisinopril-hydrochlorothiazide 10-12.5 mg tablet 1.5 tab PO QAM Qty: 135 1RF Krames/Other Patient Handouts: ED General Allergic Reactions, ED Angioedema Admission Data Admit Date/Time: 01/13/22 09:10 Attending Provider: Vince Sanderson Admit Provider: Vince Sanderson Primary Care Provider: Gemma Artis Other Providers: Vince Sanderson Coding Diagnoses Angioedema T78.3XXA Facial swelling R22.0 Difficult airway for intubation T88.4XXA Hypertension I10 Hyperlipidemia E78.5 Dizziness R42
--- NOTE | 2022-01-14 12:41 | Communication Note ---
Date of Service: January 14, 2022 By CMS guidelines, a determination that the admission or continued stay is not medically necessary has been made by a member of the UR committee and a phy sician for this hospital stay, therefore a Code 44 will be completed and the Inpatient admission will be changed to outpatient.
--- NOTE | 2022-01-14 12:54 | Communication Note ---
Date of Service: January 14, 2022 By CMS guidelines, a determination that the admission or continued stay is not medically necessary has been made by a member of the UR committee and a ph ysician for this hospital stay, therefore a Code 44 will be completed and the Inpatient admission will be changed to outpatient. Vince Sanderson MD
== END 2022-01-14 13:45 | disposition home or self-care (01) ==
LOC: ED 07:04 → INTOOBSV 09:10 → 1E 09:10